=== PATIENT | female | born 1990 | race Two or more races ===

== ENCOUNTER 2021-03-19 06:19 | Day surgery (SDC) | payer BC | END 2021-03-19 11:05 | disposition home or self-care (01) | LOC: AMB-ENDOS 06:19 | PROVIDERS: ATTEND Surgery | DX: D13.1 Benign neoplasm of stomach (principal); K44.9 Diaphragmatic hernia without obstruction or gangrene; Z20.822 Contact with and (suspected) exposure to COVID-19 ==